=== PATIENT | female | born 1950 | race Native Hawaiian/Other Pacific Islander ===

== ENCOUNTER 2018-04-20 13:05 | Outpatient (CLI) | payer OTHER | END 2018-04-20 19:50 | disposition home or self-care (01) | LOC: RAD 13:05 | DX: M85.89 Other specified disorders of bone density and structure, multiple sites (principal) ==

== ENCOUNTER 2020-12-25 15:26 | Outpatient (CLI) | payer OTHER | END 2020-12-25 21:04 | disposition home or self-care (01) | LOC: RAD 15:26 | PROVIDERS: ATTEND Nurse Practitioner Family | DX: M05.69 Rheumatoid arthritis of multiple sites with involvement of other organs and systems (principal); M79.671 Pain in right foot ==

== ENCOUNTER 2021-01-12 10:05 | Outpatient (CLI) | payer OTHER | END 2021-01-12 19:06 | disposition home or self-care (01) | LOC: RAD 10:05 | PROVIDERS: ATTEND Nurse Practitioner Family | DX: M05.69 Rheumatoid arthritis of multiple sites with involvement of other organs and systems (principal); M79.671 Pain in right foot; N95.8 Other specified menopausal and perimenopausal disorders ==

== ENCOUNTER 2021-01-17 12:25 | Day surgery (SDC) | payer OTHER ==
[2021-01-12 10:38] LABS: PLATELET COUNT 400 K/uL (152-353)
[2021-01-12 10:52] LABS: POTASSIUM 4.1 mmol/L (3.6-5.2)
[~2021-01-17] VITALS: Ht 33 cm; Wt 0.5 kg
== END 2021-01-17 15:30 | disposition home or self-care (01) ==
LOC: OR 12:25
PROVIDERS: ATTEND Internal Medicine Gastroenterology
PROC: 0DBL8ZZ Excision of Transverse Colon, Via Natural or Artificial Opening Endoscopic (ICD-10-PCS; principal; 2021-01-17)
PROC: 0W3P8ZZ Control Bleeding in Gastrointestinal Tract, Via Natural or Artificial Opening Endoscopic (ICD-10-PCS; 2021-01-17)
DX: C18.4 Malignant neoplasm of transverse colon (principal); K57.30 Diverticulosis of large intestine without perforation or abscess without bleeding; K64.8 Other hemorrhoids; D50.8 Other iron deficiency anemias; Z20.822 Contact with and (suspected) exposure to COVID-19
CPT/HCPCS: 80053; 85027; 87635; J2704; U0003